=== PATIENT | female | born 1990 ===

== ENCOUNTER 2016-08-12 18:35 | Emergency (ER) | payer OTHER, BC ==
[2016-08-12 18:35] VITALS: BMI 21.1
[2016-08-12 18:57] VITALS: BP 115/79; PULSE 86; RESP 18; TEMP 98; O2SAT 99
--- NOTE | 2016-08-12 20:05 | C.PDOC ---
History Of Present Illness Patient is a 26 y/o female that presents to the ED for evaluation of right ankle pain. Patient states a heavy object fell on her right foot, injuring her right ankle. Otherwise, denies any skin changes, numbness/weakness, or any other associated symptoms at this time. Chief Complaint (Nursing): Lower Extremity Problem/Injury History Per: Patient History/Exam Limitations: no limitations Onset/Duration Of Symptoms: Hrs Current Symptoms Are (Timing): Still Present Recent travel outside of the [place]: No Additional History Per: Patient - Ankle/Foot Description Of Injury: Struck With Object Currently Unable To: Bear Weight Past Medical History Reviewed: Historical Data, Nursing Documentation, Vital Signs Vital Signs: Last Vital Signs Temp 98 F 08/12/16 18:47 Pulse 86 08/12/16 18:47 Resp 18 08/12/16 18:47 BP 115/79 08/12/16 18:47 Pulse Ox 99 08/12/16 21:16 - Medical History PMH: Denies: Depression Surgical History: Appendectomy - [facility] Procedures INJECT/INFUSE NEC (09/15/13) Family History: States: Unknown Family Hx - Social History Hx Tobacco Use: No Hx Alcohol Use: No Hx Substance Use: No Review Of Systems Except As Marked, All Systems Reviewed And Found Negative. Constitutional: Negative for: Fever, Chills Musculoskeletal: Positive for: Foot Pain (right ankle) Neurological: Negative for: Weakness, Numbness Physical Exam - Physical Exam Appears: Non-toxic, No Acute Distress Skin: Normal Color, Warm, Dry Extremity: Normal ROM, Tenderness (right medial malleolus), Capillary Refill (< 2 sec.), No Deformity, No Swelling Extremity: Bilateral: Normal Color And Temperature, Normal ROM Pulses: Left Dorsalis Pedis: Normal, Right Dorsalis Pedis: Normal Neurological/Psych: Oriented x3, Normal Speech, Normal Cognition, Normal Motor, Normal Sensation ED Course And Treatment O2 Sat by Pulse Oximetry: 99 (on RA) Pulse Ox Interpretation: Normal - Other Rad Right ankle x-ray X-Ray: Interpreted by Me, Viewed By Me Interpretation: No fracture or dislocation. Progress Note: Right ankle x-ray ordered and reviewed. Patient was given Motrin in the ER. On reassessment, patient reports improvement of symptoms. Patient is being discharged home with air cast, and crutches, and is instructed to follow up with orthopedist in 1-2 days. Disposition - Disposition Referrals: Rocio Malik MD [Staff Provider] - Disposition: HOME/ ROUTINE Disposition Time: 20:02 Condition: STABLE Additional Instructions: Follow up with Orthopedist within 1-2 days. Return to ED if feel worse. Prescriptions: Ibuprofen [Motrin Tab] 600 mg PO Q8 #30 tab Instructions: Ankle Sprain (ED), Ankle Stirrup Splint (ED) Forms: Work Excuse - Clinical Impression Clinical Impression: Ankle injury - PA / [employer] / Resident Statement MD/DO has reviewed & agrees with the documentation as recorded. - Scribe Statement The provider has reviewed the documentation as recorded by the Arslanibbraulio Hoff All medical record entries made by the Shanti were at my direction and personally dictated by me. I have reviewed the chart and agree that the record accurately reflects my personal performance of the history, physical exam, medical decision making, and the department course for this patient. I have also personally directed, reviewed, and agree with the discharge instructions and disposition.
--- NOTE | 2016-08-13 08:33 | RAD ---
PROCEDURE: Right Ankle Radiographs. HISTORY: injury COMPARISON: None FINDINGS: BONES: Normal. No fracture. JOINTS: There is asymmetry in the right ankle mortise with widening at the medial mortise. SOFT TISSUES: Normal. OTHER FINDINGS: None. IMPRESSION: No evidence of acute fracture. Asymmetry in the is ankle mortise widening in the medial aspect. The possibility of mild dislocation and soft tissue injury should be considered.
== END 2016-08-12 20:14 | disposition home or self-care (01) ==
LOC: C.ER 18:35
DX: S99.911A Unspecified injury of right ankle, initial encounter (principal); W22.8XXA Striking against or struck by other objects, initial encounter; Y92.89 Other specified places as the place of occurrence of the external cause; Y99.8 Other external cause status